=== PATIENT | male | born 1990 | race Caucasian/White ===

== ENCOUNTER 2025-02-22 12:03 | Emergency (ER) | payer MEDICAID ==
[~2025-02-22] VITALS: Ht 157.5 cm; Wt 54.4 kg
[2025-02-22] MEDS ORDERED: IBUPROFEN 800 MG TABLET ONE (14:36)
[2025-02-22] MEDS: IBUPROFEN 800 MG TABLET PO ONE (14:39)
[2025-02-22] MEDS ORDERED: IBUP-1957 PO (16:42)
[2025-02-22 17:05] VITALS: BP 128/89; O2SAT 100
== END 2025-02-22 17:05 | disposition home or self-care (01) ==
LOC: ER 12:03
DX: S16.1XXA Strain of muscle, fascia and tendon at neck level, initial encounter (principal); M12.811 Other specific arthropathies, not elsewhere classified, right shoulder; X58.XXXA Exposure to other specified factors, initial encounter; Y93.89 Activity, other specified; Y92.89 Other specified places as the place of occurrence of the external cause; Y99.8 Other external cause status
CPT/HCPCS: 72125; 73030; A4606; A4663